=== PATIENT | female | born 1960 | race Caucasian/White ===

== ENCOUNTER 2021-05-20 05:39 | Outpatient (CLI) | payer OTHER ==
[~2021-05-20] VITALS: Ht 160 cm; Wt 99.0 kg
[2021-05-20] MEDS ORDERED: INSU100I14 SQ (18:38)
[2021-05-20] MEDS ORDERED: LINA72CA PO (18:38)
[2021-05-20] MEDS ORDERED: GBPN600T PO (18:38)
[2021-05-20] MEDS ORDERED: FURO20TA4 PO (18:38)
[2021-05-20] MEDS ORDERED: ATOR10TA66 PO (18:38)
[2021-05-20] MEDS ORDERED: LISI20TA26 PO (18:38)
[2021-05-20] MEDS ORDERED: INSU100V37 SQ (18:38)
[2021-05-20] MEDS ORDERED: DOXY100C2 PO (18:39)
== END 2021-05-20 19:33 | disposition home or self-care (01) ==
LOC: PREOP 05:39
PROVIDERS: ATTEND Podiatrist Foot & Ankle Surgery
DX: Z01.818 Encounter for other preprocedural examination (principal)

== ENCOUNTER → 2021-08-09 | Outpatient (CLI) | payer OTHER ==
[~2021-08-09] VITALS: Ht 157.5 cm; Wt 102.3 kg
[~2021-08-09] MED LIST: ATOR10TA66 PO; DOXY100C5 PO; FURO20TA4 PO; GBPN600T PO; INSU100I14 SQ; INSU100V37 SQ; INSU200I SQ; LINA72CA PO; LISI20TA26 PO
== END | disposition home or self-care (01) ==
LOC: PREOP 05:33
PROVIDERS: ATTEND Podiatrist Foot & Ankle Surgery
DX: Z01.818 Encounter for other preprocedural examination (principal)

== ENCOUNTER 2021-08-16 08:28 | Day surgery (SDC) | payer MEDICARE, MEDICAID ==
[~2021-08-16] VITALS: Ht 157.5 cm; Wt 102.3 kg
[2021-08-16] VITALS (8 sets, daily range): BP systolic 121–154; BP diastolic 72–87
--- OUTSIDE RECORDS SUMMARY | 2021-08-16 08:32 | XMS REPORT | Encounter Summary ---
Author Author [facility] Organization [facility] Address Unknown Phone Unavailable Care Team Providers Care Biscuit Packer Name Role Phone Juan Alberto Harry MD PCP Reason for Visit * HH Auth Cert Diagnoses / Procedures Referred By Contact Referred To Ned ct Specialty Referral ID Status Reason Start Date Expiration Visits Vi sits Date Requested Authorized [id number] 1 1 Encounter Details Care Team Description Date Type Department Elza Malhotra RN SN OASIS DISCHARGE 06/18/2021 Home Care Visit [facility] [address] [facility] [address] [place] [id number] Social History Date Tobacco Use Types Packs/Day Years Used Former Smoker Cigarettes 35 Smokeless Tobacco: Never Used Comments Alcohol Use Standard Drinks/Week No 0 (1 standard drink = 0.6 o z pure alcohol) Sex Assigned at Date Recorded Not on file documented as of this encounter Last Filed Vital Signs Reading Time Taken Comments Vital Sign 142/68 06/18/2021 12:44 PM CDT Blood Pressure 88 06/18/2021 12:44 PM CDT Pulse 35.8 C (96.5 F) 06/18/2021 12:44 PM CDT Temperature 20 06/18/2021 12:44 PM CDT Respiratory Rate 97% 06/18/2021 12:44 PM CDT Oxygen Saturation - - Inhaled Oxygen Concentration - - Weight - - Height - - Body Mass Index documented in this encounter Plan of Treatment Not on filedocumented as of this encounter Visit Diagnoses Not on filedocumented in this encounter Home Health Visit - Care Plan Visit Type - SN OASIS Discharge Discipline - Alf Status Goals Interventions Problem Descriptio Start Date n Active 1 goal linked to scheduled/documented intervention 1 goal intervention scheduled/documented in this visit Shared: Patient Strength, 04/23/2021 Goals and Care Preferences Disciplines: Alf, SHARED Active 1 goal linked to scheduled/documented intervention 1 goal intervention scheduled/documented in this visit Shared: Pain Management 04/23/2021 Disciplines: Alf, SHARED Active 1 goal linked to scheduled/documented intervention 1 goal intervention scheduled/documented in this visit Shared: Medication Management 04/23/2021 Management and Disciplines: Education Alf, SHARED of All Home Medication s Including Prescripti on and OTC. Active 1 goal linked to scheduled/documented intervention 1 goal intervention scheduled/documented in this visit Shared: Advance 04/23/2021 Directives Disciplines: Alf, SHARED Active 1 goal linked to scheduled/documented intervention 1 goal intervention scheduled/documented in this visit Shared: Diabetes: 04/23/2021 Knowledge Deficit Related to Diabetic Foot Care Disciplines: Alf, SHARED Goal Met? Visit Notes Goal Associated Outcome Problem No Shared: Patient/Caregiver Shared: will progress towards Patient goals and achieve them Strength, Goals and Care Preference s No Shared: Patient will Shared: achieve adequate pain Pain control Management Description: with pain reduced to patient stated goal of 0/10 No Shared: Patient/Caregiver Shared: will verbalize Medication understanding of Management medication regimen and demonstrate ability to safely manage meds by the end of the episode of care No Shared: Advance Shared: directives obtained, or Advance if not, requested 3 times Directives by agency No Shared: Patient will be Shared: able to teach back Diabetes: diabetic foot care Knowledge Deficit Related to Diabetic Foot Care Variance Visit Notes Intervention Associated Status Problem/Go al Patient demonstrates progress towards the stated goals by today. Shared: Patient Goals Problem: Completed Description: Shared: Patient stated goals: Patient decrease the number of Strength, medications. Goals and Care Preference s Goal: Shared: Patient/Ca regiver will progress towards goals and achieve them Assessed patient's pain. Patient instructed in pain management techniques, including: positioning. Patient response to teaching: teach back provided. Shared: Assess/Instruct Problem: Completed on Pain Shared: Monitoring/Management Pain Description: Management Assess/Instruct in Goal: interventions to monitor Shared: and mitigate pain: Patient medication will management/monitoring achieve adequate pain control Patient reports no changes/question/concerns about medication list. Shared: Medication Problem: Completed Regimen Review Including Shared: Name, Dose, Frequency, Medication and Route Management Description: Goal: Assess/review medications Shared: for adherence, new Patient/Ca orders, errors, regiver questions/concerns, will presence in the home. verbalize understand ing of medication regimen and demonstrat e ability to safely manage meds by the end of the episode of care Advance Directives should be requested up to 3 times. Once these are either obtained or requested 3 times, this problem/intervention can be resolved. Also resolve it patient does not have advance directives or refuses/reports inability to give to agency. Advance Directives status: patient unable to obtain a copy. Shared: Advance Problem: Completed Directives Shared: Requested/Obtained Advance Description: Directives Patient has Health Care Goal: Directive no Shared: Advance directives obtained, or if not, requested 3 times by agency Patient instructed in diabetic foot care of: Diabetes: Inspecting Feet (Declan). Patient response to teaching: teach back provided. Shared: Instruct Diabetic Problem: Completed Foot Care Shared: Description: Diabetes: Assess/Instruct in Knowledge diabetic foot care, Deficit including monitoring for Related to skin lesions, education Diabetic on proper foot care. Foot Care Goal: Shared: Patient will be able to teach back diabetic foot care documented in this encounter Care Teams Start Date End Date Biscuit Packer Relationship Specialty 04/21/21 Juan Alberto Harry MD PCP - General [address] [id number] documented as of this encounter
--- OUTSIDE RECORDS SUMMARY | 2021-08-16 08:32 | XMS REPORT | Clinical Summary ---
Author Author [facility] Organization [facility] Address Unknown Phone Unavailable Care Team Providers Care Instrument Repair Supervisor Name Role Phone Juan Alberto Harry MD PCP Allergies Comments Active Allergy Reactions Severity Noted Date Pt states that it makes her hair fall out Ether 02/07/2018 Medications End Date Status Medication Sig Dispensed Refills Start Date Active atorvastatin (LIPITOR) 20 Take 20 mg by 12/04 MG tablet mouth daily. 8 Active buPROPion (WELLBUTRIN SR) Take 150 mg 12/04 150 MG SR 12 hr tablet by mouth 8 daily. Active INVOKAMET 150-1,000 mg Take 01 Tab 150-1,000 mcg 8 by mouth 2 (two) times a day. Active diclofenac (VOLTAREN) 1 % APPLY 2 GRAMS 12/04 gel 4 TIMES DAILY 8 Active gabapentin (NEURONTIN) Take 100 mg 100 MG capsule by mouth 8 daily. Active gabapentin (NEURONTIN) [The details 300 MG capsule of the 8 medication are not available because there are pending changes by a home health clinician.] Active hydroCHLOROthiazide Take 12.5 mg (HYDRODIURIL) 12.5 MG by mouth 8 tablet daily. Active hydrOXYzine (ATARAX) 10 Take 10 mg by 0 MG tablet mouth daily. 8 Active TRESIBA FLEXTOUCH U-200 [The details 200 unit/mL (3 mL) pen of the 8 medication are not available because there are pending changes by a home health clinician.] Active montelukast (SINGULAIR) Take 10 mg by 10 mg tablet mouth daily. 8 Active tiZANidine (ZANAFLEX) 4 Take 4 mg by 0 MG tablet mouth 2 (two) 8 times a day. Active aspirin 81 MG EC tablet Take 81 mg by 0 mouth daily. Active diphenhydrAMINE Take 25 mg by 0 (BENADRYL) 25 mg tablet mouth as needed for sleep. Active triamcinolone (KENALOG) Apply to 454 g 1 0.1 % affected 8 ointmentIndications: areas of skin Intrinsic atopic only, twice dermatitis daily. DO not apply to face, underarms, or groin Active insulin aspart U-100 Inject 1 0 (NOVOLOG) 100 unit/mL Units under 1 injection the skin 3 (three) times a day before meals. none if under 200 200 and over 12 units 300 and over 14 units 400 and over 16 units 500 and over 18 units I Active lisinopriL [The details 0 (PRINIVIL,ZESTRIL) 20 MG of the 1 tablet medication are not available because there are pending changes by a home health clinician.] Active furosemide (LASIX) 20 MG Take 20 mg by 0 04/23 tablet mouth daily. 1 Active linaCLOtide (LINZESS) 72 Take 1 0 04/23 mcg cap capsule capsule by 1 mouth daily. Active insulin lispro (HUMALOG) Inject 1 0 05/28 100 unit/mL (3 mL) pen Units under 1 the skin as needed. sliding scale Active Problems Problem Noted Date Diabetic foot ulcer with osteomyelitis 04/22/2021 Ulcer of left foot, with fat layer exposed 1 PAD (peripheral artery disease) 04/22/2021 DM2 (diabetes mellitus, type 2) 04/22/2021 HTN (hypertension) 04/22/2021 Neuropathy 04/22/2021 Intrinsic atopic dermatitis 02/07/2018 Last Assessment & Plan: Formatting of this note might be differ ent from the original. -Dove white bar soap -No perfumes, ask family members to azeb id wearing as well -Free and clear detergent -apply Cetaphil or Cerave cream after p rescription topical -Rx T[facility] BID PRN itch, do not use on fac e or skin folds Encounters Care Team Description Date Type Specialty Elza Malhotra RN SN OASIS DISCHARGE 06/18/2021 Home Care Visit [facility] Elza Malhotra RN SN HOME VISIT 06/07/2021 Home Care Visit [facility] Samantha Lius RN SN HOME VISIT 06/04/2021 Home Care Visit [facility] Elza Malhotra RN SN MISSED VISIT DOCUMENTATION 06/02/2021 Home Care Visit Home Health Service s Elza Malhotra RN SN HOME VISIT 05/31/2021 Home Care Visit Home Health Service s Elza Malhotra RN SN HOME VISIT 05/28/2021 Home Care Visit Home Health Service s Elza Malhotra RN SN HOME VISIT 05/26/2021 Home Care Visit Home Health Service s Elza Malhotra RN SN HOME VISIT 05/24/2021 Home Care Visit Home Health Service s Elza Malhotra RN SN HOME VISIT 05/21/2021 Home Care Visit Home Health Service s Elza Malhotra RN SN HOME VISIT 05/19/2021 Home Care Visit Home Health Service Elza Jackson RN SN HOME VISIT 05/17/2021 Home Care Visit Home Health Service s from Last 3 Months Social History Date Tobacco Use Types Packs/Day Years Used Former Smoker Cigarettes 35 Smokeless Tobacco: Never Used Comments Alcohol Use Standard Drinks/Week No 0 (1 standard drink = 0.6 o z pure alcohol) Sex Assigned at Date Recorded Not on file Last Filed Vital Signs Reading Time Taken Comments Vital Sign 142/68 06/18/2021 12:44 PM CDT Blood Pressure 88 06/18/2021 12:44 PM CDT Pulse 35.8 C (96.5 F) 06/18/2021 12:44 PM CDT Temperature 20 06/18/2021 12:44 PM CDT Respiratory Rate 97% 06/18/2021 12:44 PM CDT Oxygen Saturation - - Inhaled Oxygen Concentration 97.5 kg (215 lb) 04/11/2018 12:37 PM CDT Weight 165.1 cm (5' 5") 04/11/2018 12:37 PM CDT Height 35.78 04/11/2018 12:37 PM CDT Body Mass Index Plan of Treatment Health Maintenance Due Date Last Done Comments Diabetes Mellitus 1960 Hemoglobin A1C Diabetes Mellitus 1960 Ophthalmology Exam Hepatitis C Screen 1960 Lipid Screening 1960 Medicare Annual Wellness 1960 Td/Tdap# 1960 Pneumococcal Vaccine: 02/10/1964 Pediatrics (0 to 5 Years) and At-Risk Patients (6 to 64 Years) (1 of 2 - PPSV23) Diabetes Mellitus Foot 02/10/1968 Exam COVID-19 Vaccine (1) 1970 Cervical Cancer Screening 1979 via Pap Smear Colorectal Screening via 02/10/2008 Colonoscopy Mammogram Screening 02/10/2008 Zoster Vaccine# (1 of 2) 02/10/2008 Influenza Vaccine (#1) 2021 Results Not on filefrom Last 3 Months Insurance Type Payer Benefit Subscriber ID Effective Phone Address Plan / Dates Group Medicare MEDICARE MEDICARE [id number] 2015- [phone] WPS GHA PART A B Present ATTN CLAIMS DEPT [address] [place] [address] MEDICARE REPLACEMENT PLAN [facility] DUAL [id number] 2020-P [phone] [address] [place] [address] MEDICAID MANAGED CARE [facility] [id number] 2018-P [address] [place] [address] Lia Hearn Personal/F Self 1960 [address] (Home) [address] [place] [id number] Lia eHarn Personal/F Self 1960 [address] (Home) [address] [place] [id number] Advance Directives For more information, please contact: [phone] Patient Information And Referral Director Explanation Type Date Recorded Advance Directives and Living Will Power of Skate Shop Attendant Health Care Directive Care Teams Start Date End Date Instrument Repair Supervisor Relationship Specialty 04/21/21 Juan Alberto Harry MD PCP - [address] [phone]
[2021-08-16] MEDS ORDERED: ceFAZolin INJECTION 1,000 MG ONE (08:52)
[2021-08-16] MEDS ORDERED: ceFAZolin INJECTION 1,000 MG in WATER (STERILE) FOR INJECTION 10 ML IV ONE (09:00)
[2021-08-16] MEDS ORDERED: LACTATED RINGERS 1,000 ML IV PRN (09:00)
[2021-08-16] MEDS ORDERED: BUPIVACAINE 0.5% 30 ML (SENSORCAINE) VIAL ONE (09:22)
--- NOTE | 2021-08-16 09:40 | Progress Note-Pre Operative ---
Pre-Operative Progress Note H&P Reviewed The H&P was reviewed, patient examined and no changes noted. Date Seen by Provider: Aug 16, 2021 Time Seen by Provider: 09:40 Date H&P Reviewed: Aug 16, 2021 Time H&P Reviewed: 09:40 Pre-Operative Diagnosis: Osteomyelitis, left foot RADHA CAZARES DPM Aug 16, 2021 09:40
--- NOTE | 2021-08-16 10:29 | Anesthesia-General Post-Op ---
MAC Patient Condition Mental Status/LOC: Same as Preop Cardiovascular: Satisfactory Nausea/Vomiting: Absent Respiratory: Satisfactory Pain: Controlled Complications: Absent Post Op Complications Complications None Follow Up Care/Instructions Patient Instructions None needed. Anesthesiology Discharge Order Discharge Order Patient is doing well, no complaints, stable vital signs, no apparent adverse anesthesia problems. No complications reported per nursing. SHENG SANCHEZ CRNA Aug 16, 2021 10:29
[2021-08-16] MEDS ORDERED: ONDANSETRON 4 MG/2 ML (SDV) Z0FRAN IVP PRN (10:30)
[2021-08-16] MEDS ORDERED: morphine INJ 10 MG/ML 1ML (SYR OR VIAL) IVP ONE (10:30)
[2021-08-16] MEDS ORDERED: MEPERIDINE (DEMEROL) INJ 50 MG/ML IVP ONE (10:30)
--- NOTE | 2021-08-16 10:31 | Progress Note-Post Operative ---
Post-Operative Progess Note Surgeon (s)/Egg Breaker (s) Surgeon RADHA CAZARES DPM Egg Breaker: none Pre-Operative Diagnosis Osteomyelitis, left foot Post-Operative Diagnosis same Procedure & Operative Findings Date of Procedure 08/16/21 Procedure Performed/Findings Bone biopsy left 5th metatarsal Anesthesia Type MAC Estimated Blood Loss Estimated blood loss (mL): Minimal Specimens/Packing Specimens Removed Bone from left 5th metatarsal Packing: none RADHA CAZARES DPM Aug 16, 2021 10:31
[2021-08-16] MEDS ORDERED: ACHD5005 PO (10:35)
[2021-08-16] MEDS ORDERED: CEPH500C PO (10:35)
[2021-08-16] MEDS ORDERED: HYDROcodone/APAP 5 MG/325 MG (LORTAB) TAB PO PRN (10:45)
[2021-08-16] MEDS ORDERED: LACTATED RINGERS 1,000 ML IV SCH (10:45)
--- NOTE | 2021-08-16 11:10 | Diagnostic Imaging Report ---
INDICATION: Status post foot surgery. COMPARISON: None. FINDINGS: Two radiographic views of the left foot were obtained. There is moderate soft tissue swelling and edema over the forefoot. Lucencies are identified involving the mid and distal shaft of the 5th metatarsal and may be on the basis of previous indwelling hardware. No unexpected radiopaque foreign bodies are seen on today's study. There is no evidence of acute fracture or dislocation. IMPRESSION: 1. Moderate soft tissue swelling and edema of the left foot but no acute fracture or dislocation. 2. Lucencies of the 5th metatarsal which may be on the basis of previous hardware. Correlation with surgical history is recommended. Dictated by: Dictated on workstation # [id number]
--- NOTE | 2021-08-16 13:30 | Physical Therapy Ortho Eval ---
PT Orthopedic Evaluation Type of Surgery Prior Level of Function Current Living Status: Alone Locomotion (Upon Admit): Independent, Front Wheeled Walker Established Durable Medical Eq: Front Wheeled Walker Subjective Subjective Patient reports 0/10 pain. States "I feel like I can just get up and run around." Entry Into Home: Elevator Steps Into Home: 0 Motor Control Motor Control: Motor Control WNL ROM ROM: WFL, except focal deficit Strength Strength: WFL Transfer SCALE: Activities may be completed with or without assistive devices. 2-Iqwyqdtneg-ygudldu completes the activity by him/herself with no assistance from a helper. 5-Set-up or Clean-up Assistance-helper sets up or cleans up; patient completes activity. Thor assists only prior to or following the activity. 4-Supervision or Touching Assistance-helper provides verbal cues and/or touching/steadying and/or contact guard assistance as patient completes activity. Assistance may be provided throughout the activity or intermittently. 3-Partial/Moderate Assistance-helper does LESS THAN HALF the effort. Thor lifts, holds or supports trunk or limbs, but provides less than half the effort. 2-Substantial/Maximal Assistance-helper does MORE THAN HALF the effort. Thor lifts or holds trunk or limbs and provides more than half the effort. 4-Kwdajzmoz-lcamph does ALL the effort. Patient does none of the effort to complete the activity. Or, the assistance of 2 or more helpers is required for the patient to complete the activity. If activity was not attempted, code reason: 7-Patient Refused. 9-Not Applicable-not attempted and the patient did not perform the activity before the current illness, exacerbation or injury. 10-Not Attempted due to Environmental Limitations-(lack of equipment, weather restraints, etc.). 88-Not Attempted due to Medical Conditions or Safety Concerns. Transfers (B, C, W/C) (QC): 5 Gait Gait Assistive Device: FWW Right Lower Extremity: Right Weight Bearing Status RLE: Full Weight Bearing Left Lower Extremity: Left Weight Bearing Status LLE: Partial Weight Bearing Other Weight Bearing Inst.: Heel contact on left Patient was educated on PWB left LE at length with demonstrations provided. Patient did not follow commands for PWB at all and at one point stood on her left leg independently to adjust her right sock. She was educated as to why this should not happen, however does not seem to care about the PWB status. Gait (QC): 4 Distance (QC): 1=123-03 ft Distance: 100 Gait Level of Assist: 4 Treatment Rendered Treatment: Gait Train Assessment/Goals Goal Time Frame: 1 Visit Safe Ambulation: No Plan Treatment Plan: Discharge PT/Family Agrees to Plan: Yes Time Time In: 1108 Time Out: 1126 Total Billed Treatment Time: 18 Billed Treatment Time Visit, JHONNY Keating PT Aug 16, 2021 13:30
--- NOTE | 2021-08-16 17:21 | OPERATIVE REPORT ---
DATE OF SERVICE: 08/16/2021 SURGEON: Stefany Cazares DPM. PREOPERATIVE DIAGNOSIS: Osteomyelitis, left fifth metatarsal. POSTOPERATIVE DIAGNOSIS: Osteomyelitis, left fifth metatarsal. PROCEDURE: Bone biopsy, left fifth metatarsal. WOUND CLASS: Contaminated. ANESTHESIA: Monitored anesthesia care. HEMOSTASIS: Pneumatic ankle tourniquet at 250 mmHg. INDICATIONS: This 61-year-old female presents with a previous chronic wound to the left fifth metatarsal head area. She has been diagnosed with osteomyelitis. The patient would like to pursue long-term IV antibiotics in order to dictate appropriate antibiotic protocol. A culture and sensitivity of the bone should be pursued. The patient is agreeable to surgical intervention after risks and complications were discussed at length. No guarantees were extended to the patient and she is willing to proceed. DESCRIPTION OF PROCEDURE: The patient was brought back to the operating table and placed in secure supine position. Appropriate timeout was performed. A pneumatic ankle tourniquet was placed on the left lower extremity over several layers of padding. The left fifth ray was anesthetized utilizing 10 mL of 0.5% Marcaine plain injected in a reverse Gibbons block. The left foot was then prepped and draped in normal sterile manner. The left foot was then elevated, allowed to exsanguinate, after which the tourniquet was inflated to 250 mmHg. Attention was then directed to the left fifth metatarsal area where a lateral incision of approximately 2 cm was performed. This was dictated by preoperative x-rays. The incision was deepened in the same plane with great care to identify and retract all vital neurovascular structures. The incision was deepened down to the periosteum where a longitudinal periosteum was performed, this is mid and distal portion of the diaphysis. The proximal portion of the bone was in good condition. The integrity seem to be intact. The distal portion of the fifth metatarsal cortices was much softer, this area was biopsied with a core of approximately 3 mm punch biopsy. One sample was sent for culture and sensitivity. The other was sent for gross and microscopic evaluation. The area was flushed with copious amounts of normal saline. No purulence was identified. No open lesion was found. The lesion was closed in layers. Deep closure was performed with a 4-0 Vicryl, superficial with 4-0 Vicryl, skin closure with 4-0 Prolene in a simple interrupted type stitch. Postoperative dressing consisted of Betadine soaked Adaptic, sterile 4 x 4, sterile Kerlix all secured with a Coban wrap. Tourniquet was released and noting appropriate cap refill time to the left fifth toe. The patient tolerated the anesthesia and procedure well, was transported from the operating room to the recovery room with vital signs stable and vascular status intact to all digits of the left foot. She is to follow up in my office in 10 days' period of time or sooner if necessary. She was given a prescription for Keflex as well as Vicodin. Job ID: [id number] DocumentID: [id number] Dictated Date: 08/16/2021 10:41:25 Lens Marker Date: 08/16/2021 17:20:59 Dictated By: STEFANY CAZARES DPM
== END 2021-08-16 12:10 ==
LOC: SDC 08:28
PROVIDERS: ATTEND Podiatrist Foot & Ankle Surgery
DX: M86.9 Osteomyelitis, unspecified (principal); I10 Essential (primary) hypertension; J45.909 Unspecified asthma, uncomplicated; E78.5 Hyperlipidemia, unspecified; E11.42 Type 2 diabetes mellitus with diabetic polyneuropathy; Z79.4 Long term (current) use of insulin; Z87.891 Personal history of nicotine dependence; Z79.899 Other long term (current) drug therapy; Z83.3 Family history of diabetes mellitus
CPT/HCPCS: 73620; 82947; 87070; 87075; 87081; 87205; 88307; 88311